=== PATIENT | male | born 1960 | race African-American/Black ===

== ENCOUNTER 2024-04-08 12:20 | Emergency (ER) | payer MEDICAID ==
[~2024-04-08] VITALS: Ht 175.3 cm; Wt 73.0 kg
[2024-04-08 12:23] VITALS: O2SAT 97
[2024-04-08 12:55] LABS: BASOPHILS % 0.5 % (0.0-2.0); EOSINOPHILS % 0.3 % (0.0-5.0); HEMATOCRIT. 44.8 % (42.0-52.0); HEMOGLOBIN. 14.9 g/dL (14.0-18.0); MEAN CORPUSCULAR HEMOGLOBIN 31.3 pg (28.0-32.0); MEAN CORPUSCULAR HGB CONC 33.3 g/dL (31.0-37.0); MEAN CORPUSCULAR VOLUME 93.9 fL (80.0-94.0); MEAN PLATELET VOLUME 9.8 fl (7.4-10.4); MONOCYTES % 4.7 % (2.0-8.0); NEUTROPHILS % 71.5 % (40.0-76.0); PLATELET 147 x1000/uL (130-400); RED BLOOD CELL COUNT 4.77 mill/uL (4.7-6.1); RED CELL DISTRIBUTION WIDTH 13.4 % (11.6-14.6); WHITE BLOOD COUNT 8.4 x1000/uL (4.5-11.0)
[2024-04-08 13:08] LABS: CHLORIDE 108 mEq/L (98-107); POTASSIUM 3.8 mEq/L (3.5-5.1); SODIUM 142 mEq/L (136-145)
[2024-04-08 13:09] LABS: CARBON DIOXIDE 28 mEq/L (21-32)
[2024-04-08 13:10] LABS: CALCIUM 10.3 mg/dL (8.7-10.4)
[2024-04-08 13:14] LABS: CREATININE 1.2 mg/dL (0.6-1.3)
[2024-04-08 13:15] LABS: GLUCOSE 108 mg/dL (70-105); TROPONIN I HIGH SENSITIVITY 4 ng/L (3.0-53); UREA NITROGEN BLOOD 13 mg/dL (9-23)
[2024-04-08 13:24] VITALS: TEMP 97.8
[2024-04-08 16:43] VITALS: BP 153/76; PULSE 62; RESP 16
== END 2024-04-08 16:43 | disposition home or self-care (01) ==
LOC: ER 12:20
DX: R55 Syncope and collapse (principal)
CPT/HCPCS: 36415; 71045; 80048; 83880; 84484; 85025; 93005; 99285

== ENCOUNTER 2024-06-28 18:57 | Emergency (ER) | payer MEDICARE, OTHER ==
[~2024-06-28] VITALS: Ht 180.3 cm; Wt 84.0 kg
[2024-06-28 19:07] VITALS: O2SAT 98
[2024-06-28] MEDS: SODIUM CHLORIDE 0.9% 1,000 ML IV ONE (20:24)
[2024-06-28 20:30] LABS: BASOPHILS % 0.3 % (0.0-2.0); EOSINOPHILS % 0.4 % (0.0-5.0); HEMATOCRIT. 38.6 % (42.0-52.0); HEMOGLOBIN. 12.8 g/dL (14.0-18.0); LYMPHOCYTES % 13.6 % (20.0-50.0); MEAN CORPUSCULAR HEMOGLOBIN 30.6 pg (28.0-32.0); MEAN CORPUSCULAR HGB CONC 33.1 g/dL (31.0-37.0); MEAN CORPUSCULAR VOLUME 92.3 fL (80.0-94.0); MEAN PLATELET VOLUME 9.6 fl (7.4-10.4); MONOCYTES % 4.4 % (2.0-8.0); NEUTROPHILS % 81.3 % (40.0-76.0); PLATELET 151 x1000/uL (130-400); RED BLOOD CELL COUNT 4.18 mill/uL (4.7-6.1); RED CELL DISTRIBUTION WIDTH 14.1 % (11.6-14.6); WHITE BLOOD COUNT 11.4 x1000/uL (4.5-11.0)
[2024-06-28 20:39] LABS: CHLORIDE 107 mEq/L (98-107); POTASSIUM 4.2 mEq/L (3.5-5.1); SODIUM 140 mEq/L (136-145)
[2024-06-28 20:40] LABS: CALCIUM 9.4 mg/dL (8.7-10.4); CARBON DIOXIDE 27 mEq/L (21-32)
[2024-06-28 20:45] LABS: CREATININE 1.1 mg/dL (0.6-1.3); GLUCOSE 89 mg/dL (70-105); TROPONIN I HIGH SENSITIVITY 6 ng/L (3.0-53); UREA NITROGEN BLOOD 13 mg/dL (9-23)
[2024-06-28 20:47] LABS: ALANINE AMINOTRANSFERASE 10 IU/L (10-49); ALBUMIN 4.2 g/dL (3.2-4.8); ASPARTATE AMINOTRANSFERASE 20 IU/L (<34); BILIRUBIN TOTAL 0.5 mg/dL (0.1-1.0); PROTEIN TOTAL 6.3 g/dL (6.0-8.3)
[2024-06-28] MEDS: ASPIRIN 325MG EC TABLET PO ONE (22:29)
[2024-06-28 23:17] VITALS: BP 168/80; PULSE 70; RESP 14; TEMP 98.4
== END 2024-06-29 00:15 | disposition short-term general hospital (02) ==
LOC: ER 18:57
DX: R55 Syncope and collapse (principal); R00.1 Bradycardia, unspecified; R42 Dizziness and giddiness
CPT/HCPCS: 99285; 96360; 96361; 71045; 80053; 83880; 85025; 84484; 36415; 93005; J7030